=== PATIENT | female | born 1990 | race Caucasian/White ===

== ENCOUNTER 2016-06-24 18:19 | Inpatient (IN) ==
[2016-06-24 19:06] LABS: Bilirubin,Urine Negative (Negative); Blood,Urine Negative (Negative); Clarity,Urine Clear (Clear); Color,Urine Yellow (Yellow); Glucose,Urine (UA) Normal (Normal); Ketones,Urine Negative (Negative); Leukocyte Esterase,Urine Small (Negative); Nitrite,Urine Negative (Negative); Protein,Urine Negative (Neg-Trace); Specific Gravity,Urine 1.014 (1.010-1.025); Urobilinogen,Urine Normal (Normal)
--- NOTE | 2016-06-24 19:09 | Emergency Department Note ---
Disposition Clinical Impression: Pancreatitis Qualifiers: Chronicity: acute Pancreatitis type: unspecified pancreatitis type Acute pancreatitis complication: unspecified Qualified Code(s): K85.90 - Acute pancreatitis without necrosis or infection, unspecified Disposition: Admitted As Inpatient Condition: Fair Time of Disposition: 20:52 Abdominal Pain HPI - General Chief Complaint: ED Abdominal Pain Stated Complaint: ABD Pain Time Seen by Provider: 06/24/16 18:26 Source: patient, family Nursing Notes Reviewed: Yes Vital Signs Reviewed: Yes - History of Present Illness HPI Narrative: Ms. Torrez is a 26 year old female that presents with ongoing LUQ pain going on 3.5 hours with radiation into the epigastric region. Noting increase in frequency Patient reports a 3-4 month history of LUQ pain for which she has seen GI in clinic. Omeprazole previously increased to BID for GERD, hydrocortisone creme for history of hemorrhoids, and Bentyl for abdominal pain. Denies fever, nausea, vomiting. Pt Subjective Complaint: abdominal pain Onset (ago): hour(s) Consistency: constant Location: LUQ Pain Severity: severe Pain Scale: 8 Quality: sharp - Related Data Allergies Allergy/AdvReac Type Severity Reaction Status Date / Time No Known Allergies Allergy Verified 06/24/16 18:21 All systems ED: reviewed and negative except as stated. Constitutional: Denies: fever, chills Eyes: Denies: vision change ENT ED: Denies: hearing loss Cardiovascular: Denies: chest pain Respiratory: Denies: dyspnea Gastrointestinal: Reports: abdominal pain, diarrhea, melena, hematochezia. 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 Absent : tenderness - Respiratory Respiratory exam: Present: normal lung sounds bilaterally. Absent: respiratory distress, wheezes - Cardiovascular Cardiovascular exam: Present: regular rate, normal rhythm, +S1, +S2 - Abdominal Exam Abdominal exam: Present: soft, tenderness. Absent: distention, guarding, rebound, rigidity Abdominal tenderness: Present: LUQ, epigastrium - Extremities Exam Extremities exam: Present: normal inspection, full ROM. Absent: pedal edema - Back Exam Back exam: Absent: CVA tenderness (R), CVA tenderness (L) - Neurological Exam Neurological exam: Present: alert, oriented X3 - Psychiatric Psychiatric exam: Present: normal affect, normal mood - Skin Skin exam: Present: warm, dry, intact, normal color. Absent: rash, erythema Course Vital Signs Temperature 97.6 F 06/24/16 18:21 Pulse Rate 99 06/24/16 18:21 Respiratory Rate 16 06/24/16 18:21 Blood Pressure 194/107 06/24/16 18:21 O2 Sat by Pulse Oximetry 100 06/24/16 18:21 Temperature 98.2 F 06/24/16 23:45 Pulse Rate 73 06/24/16 23:45 Respiratory Rate 14 06/24/16 23:45 Blood Pressure 126/64 06/24/16 23:45 O2 Sat by Pulse Oximetry 97 06/24/16 23:45 Oxygen Delivery Oxygen Delivery Room Air Abdominal Pain - MDM Narrative Medical decision making narrative: Patient found to have elevated lipase at 1112. Denies history of alcohol use or hyperlipidemia. Will order lipid panel. Start fluids and order pain medication. Spoke to hospitalist who agreed to accept patient. Discussed findings and plan with patient who is agreeable to admission. - Medical Records Medical records reviewed: Yes I reviewed the patient's medical records. - Lab Data Lab results reviewed: Yes I reviewed the patient's lab results. Result diagrams: 06/24/16 19:04 06/24/16 19:04 Lab Results 06/24/16 06/24/16 06/24/16 Range/Units 18:38 18:50 19:04 WBC 9.7 (4.3-11.1) K/mcL RBC 4.77 (3.82-4.97) M/mcL Hgb 12.3 (11.5-15.4) g/dL Hct 40.4 (35.3-44.9) % MCV 84.7 (83.0-100.0) fL MCH 25.8 L (28.0-33.3) pg MCHC 30.4 L (31.6-35.5) g/dL RDW 12.9 (11.5-14.5) % Plt Count 441 H (140-400) K/mcL MPV 10.1 (9.4-12.4) fL Immature Gran % 0.3 (0-4) % Seg Neutrophils % 75.7 % Lymphocytes % 17.8 % Monocytes % 5.0 % Eosinophils % 0.9 % Basophils % 0.3 % Neutrophils # 7.4 (1.6-8.9) K/mcL Lymphocytes # 1.7 (0.6-4.6) K/mcL Monocytes # 0.5 (0.0-1.3) K/mcL Eosinophils # 0.1 (0.0-0.6) K/mcL Basophils # 0.0 (0.0-0.2) K/mcL Sodium (136-145) mEq/L Potassium (3.5-4.5) mEq/L Chloride (98-109) mEq/L Carbon Dioxide (19-29) mEq/L BUN (7-20) mg/dL Creatinine (0.57-1.11) mg/dL Est GFR ( Amer) (> 60) Est GFR (Non-Af Amer) (> 60) BUN/Creatinine Ratio (6-26) Glucose (70-99) mg/dL Calculated Osmolality (280-300) Calcium (8.6-10.8) mg/dL Total Bilirubin (0.2-1.2) mg/dL Direct Bilirubin (0.0-0.5) mg/dL Indirect Bilirubin (0.0-1.2) mg/dL AST (5-34) Units/L ALT (0-55) Units/L Alkaline Phosphatase (38-126) Units/L Serum Total Protein (6.0-8.3) g/dL Albumin (3.5-5.0) g/dL Globulin (2.4-3.5) g/dL Albumin/Globulin Ratio (1.1-2.2) Triglycerides (< 150) mg/dL Cholesterol (< 200) mg/dL LDL Cholesterol, Calc (0-99) mg/dL VLDL Cholesterol, Calc (< 31) mg/dL HDL Cholesterol (40-59) mg/dL Cholesterol/HDL Ratio (0-4.9) Amylase (25-125) Units/L Lipase (8-78) Units/L Urine Color Yellow (Yellow) Urine Clarity Clear (Clear) Urine pH 7.0 (5.0-8.0) pH Units Ur Specific [place] 1.014 (1.010-1.025) Urine Protein Negative (Neg-Trace) mg/dL Urine Glucose (UA) Normal (Normal) mg/dL Urine Ketones Negative (Negative) mg/dL Urine Blood Negative (Negative) Urine Nitrite Negative (Negative) Urine Bilirubin Negative (Negative) Urine Urobilinogen Normal (Normal) mg/dL Ur Leukocyte Esterase Small H (Negative) Urine Microscopic WBC 3-5 H (0-3) per hpf Ur Squamous Epith Cells Few (None-Few) per lpf Urine Bacteria Few (None-Few) per hpf Ur Culture Indicated? YES A (NO) Urine Test Negative (Negative) 06/24/16 Range/Units 19:04 WBC (4.3-11.1) K/mcL RBC (3.82-4.97) M/mcL Hgb (11.5-15.4) g/dL Hct (35.3-44.9) % MCV (83.0-100.0) fL MCH (28.0-33.3) pg MCHC (31.6-35.5) g/dL RDW (11.5-14.5) % Plt Count (140-400) K/mcL MPV (9.4-12.4) fL Immature Gran % (0-4) % Seg Neutrophils % % Lymphocytes % % Monocytes % % Eosinophils % % Basophils % % Neutrophils # (1.6-8.9) K/mcL Lymphocytes # (0.6-4.6) K/mcL Monocytes # (0.0-1.3) K/mcL Eosinophils # (0.0-0.6) K/mcL Basophils # (0.0-0.2) K/mcL Sodium 138 (136-145) mEq/L Potassium 4.0 (3.5-4.5) mEq/L Chloride 105 (98-109) mEq/L Carbon Dioxide 25 (19-29) mEq/L BUN 9 (7-20) mg/dL Creatinine 0.85 (0.57-1.11) mg/dL Est GFR ( Amer) > 60 (> 60) Est GFR (Non-Af Amer) > 60 (> 60) BUN/Creatinine Ratio 11 (6-26) Glucose 138 H (70-99) mg/dL Calculated Osmolality 287 (280-300) Calcium 9.3 (8.6-10.8) mg/dL Total Bilirubin 0.9 (0.2-1.2) mg/dL Direct Bilirubin 0.5 (0.0-0.5) mg/dL Indirect Bilirubin 0.4 (0.0-1.2) mg/dL AST 82 H (5-34) Units/L ALT 62 H (0-55) Units/L Alkaline Phosphatase 115 (38-126) Units/L Serum Total Protein 7.5 (6.0-8.3) g/dL Albumin 3.4 L (3.5-5.0) g/dL Globulin 4.1 H (2.4-3.5) g/dL Albumin/Globulin Ratio 0.8 L (1.1-2.2) Triglycerides 112 (< 150) mg/dL Cholesterol 168 (< 200) mg/dL LDL Cholesterol, Calc 97 (0-99) mg/dL VLDL Cholesterol, Calc 22 (< 31) mg/dL HDL Cholesterol 49 (40-59) mg/dL Cholesterol/HDL Ratio 3.4 (0-4.9) Amylase 367 H (25-125) Units/L Lipase 1112 H (8-78) Units/L Urine Color (Yellow) Urine Clarity (Clear) Urine pH (5.0-8.0) pH Units Ur Specific [place] (1.010-1.025) Urine Protein (Neg-Trace) mg/dL Urine Glucose (UA) (Normal) mg/dL Urine Ketones (Negative) mg/dL Urine Blood (Negative) Urine Nitrite (Negative) Urine Bilirubin (Negative) Urine Urobilinogen (Normal) mg/dL Ur Leukocyte Esterase (Negative) Urine Microscopic WBC (0-3) per hpf Ur Squamous Epith Cells (None-Few) per lpf Urine Bacteria (None-Few) per hpf Ur Culture Indicated? (NO) Urine Test (Negative) - Radiology Data Radiology results reviewed: Yes I reviewed the patient's radiology results. Attestation Statement - Attestation Attestation: I examined this patient and my medical decision-making was reviewed with the INVENTORY CONTROL MANAGER/PA/Advanced Practice Nurse/Resident Physician. I agree with the documented findings, disposition and treatment plan as described except to the extent set forth below. Patient presents with epigastric pain for several days she has decreased appetite several episodes of vomiting. On exam she is mildly tender in the epigastric area labs reviewed lipase over 1000 woman to the hospital service analgesic and antiemetic control IV fluids.
[2016-06-24 19:11] LABS: Bacteria,Urine Few per hpf (None-Few); Squamous Epithelial Cell,Urine Few per lpf (None-Few)
[2016-06-24 19:14] LABS: Basophils % 0.3 %; Eosinophils # 0.1 K/mcL (0.0-0.6); Eosinophils % 0.9 %; Hematocrit 40.4 % (35.3-44.9); Hemoglobin 12.3 g/dL (11.5-15.4); Immature Granulocytes % 0.3 % (0-4); Lymphocytes # 1.7 K/mcL (0.6-4.6); Lymphocytes % 17.8 %; Mean Corpuscular HGB Conc 30.4 g/dL (31.6-35.5); Mean Corpuscular Hemoglobin 25.8 pg (28.0-33.3); Mean Corpuscular Volume 84.7 fL (83.0-100.0); Mean Platelet Volume 10.1 fL (9.4-12.4); Monocytes # 0.5 K/mcL (0.0-1.3); Neutrophils # 7.4 K/mcL (1.6-8.9); Platelet Count 441 K/mcL (140-400); Red Blood Count 4.77 M/mcL (3.82-4.97); Red Cell Distribution Width 12.9 % (11.5-14.5); Segmented Neutrophils % 75.7 %
[2016-06-24 19:31] LABS: Alanine Aminotransferase 62 Units/L (0-55); Albumin 3.4 g/dL (3.5-5.0); Albumin/Globulin Ratio 0.8 (1.1-2.2); Alkaline Phosphatase 115 Units/L (38-126); Amylase 367 Units/L (25-125); Aspartate Amino Transferase 82 Units/L (5-34); BUN/Creatinine Ratio 11 (6-26); Bilirubin,Direct 0.5 mg/dL (0.0-0.5); Bilirubin,Indirect 0.4 mg/dL (0.0-1.2); Bilirubin,Total 0.9 mg/dL (0.2-1.2); Blood Urea Nitrogen 9 mg/dL (7-20); Calcium 9.3 mg/dL (8.6-10.8); Carbon Dioxide 25 mEq/L (19-29); Chloride 105 mEq/L (98-109); Globulin 4.1 g/dL (2.4-3.5); Glucose 138 mg/dL (70-99); Lipase 1112 Units/L (8-78); Osmolality,Calculated 287 (280-300); Sodium 138 mEq/L (136-145); Total Protein 7.5 g/dL (6.0-8.3); eGFR For African Americans > 60 (> 60); eGFR For Non-African Americans > 60 (> 60)
[2016-06-24] MEDS ORDERED: Ketorolac 30 MG/ML VIAL IVP ONE (19:55)
[2016-06-24 20:03] LABS: Chol/HDL Ratio 3.4 (0-4.9); Cholesterol 168 mg/dL (< 200); HDL Cholesterol 49 mg/dL (40-59); LDL Cholesterol,Calculated 97 mg/dL (0-99); Triglycerides 112 mg/dL (< 150)
[2016-06-24] MEDS ORDERED: 0.9 % Sodium Chloride 1,000 ML IVC ONE (20:20)
[2016-06-24] MEDS ORDERED: Naloxone 0.4 MG/ML INJ IVP PRN (22:04)
[2016-06-24] MEDS ORDERED: *HR* HYDROmorphone (PF) 1 MG/ML SYRINGE IVP PRN (22:04)
[2016-06-24] MEDS ORDERED: *HR* Promethazine 25 MG/ML VIAL IVP PRN (22:04)
[2016-06-24] MEDS ORDERED: Ketorolac 30 MG/ML VIAL IVP PRN ×3 (22:04→22:25)
[2016-06-24] MEDS ORDERED: *HR* Morphine 2 MG/ML SYRINGE IVP PRN (22:21)
[2016-06-24] MEDS: 0.9 % Sodium Chloride 1,000 ML IVC SCH (22:32)
--- NOTE | 2016-06-24 23:24 | Internal Med History&Physical ---
<Gia Shannon - Last Filed: 06/25/16 04:21> Date of Encounter: 06/25/16 Time of Encounter: 23:13 Assessment and Plan (1) Pancreatitis Status: Acute unknown etiology lipase 1112, amylase 367 glucose 138 triglycerides 112 will check ca ERCP IVF pain control NPO supportive care Qualifiers: Chronicity: acute Pancreatitis type: unspecified pancreatitis type Acute pancreatitis complication: unspecified Qualified Code(s): K85.90 - Acute pancreatitis without necrosis or infection, unspecified (2) Morbid obesity due to excess calories Status: Acute currently making lifestyle changes can follow up outpt (3) Epigastric abdominal pain Status: Acute (4) LUQ pain Status: Acute (5) DVT (deep venous thrombosis) Status: Chronic present for past 6 years wears compression stockings at home continue home therapy Qualifiers: DVT location: lower extremity Affected thrombotic vein of extremity: unspecified vein of extremity Laterality: bilateral Chronicity: chronic Qualified Code(s): I82.503 - Chronic embolism and thrombosis of unspecified deep veins of lower extremity, bilateral (6) GERD (gastroesophageal reflux disease) Status: Acute PPI Qualifiers: Esophagitis presence: esophagitis presence not specified Qualified Code(s) : K21.9 - Gastro-esophageal reflux disease without esophagitis Internal Medicine - H&P: HPI Chief complaint: abd pain Admitted From: Home Plans for Post Hospital Care: Home History of present illness: Ms. Torrez is a 26 year old female c/o LUQ abdominal pain. PMH b/l DVT, GERD with c/o LUQ pain that radiates to the epigastric region, started ealier today when she was getting ready to go for a walk and is an 8/10 sharp stabbing pain. Pt states she has had pain in this region before but never this severe. Pt states pain does not seem to be associated with any food or anything else in particular. SHe states she recently has been eating vary healthy and staying away from fried, and fatty foods and has lost about 100lbs in the past year. She states she has also had some on and off diarrhea but thinks it is due to the fiber supplants she takes.. she denies fever, chills, nausea, vomiting, SOB , CP, numbness/tingling Past Med Surg Social Fam HX - Past Medical History Medical history: DVT (b/l LE), GERD, other Psychiatric history: anxiety - Social History Smoking Status: Never smoker Smokeless Tobacco Status: No Alcohol use: none Drug use: none Current living situation: Home Activity Level: Independent ambulation Recent Out of Country Travel Within the Last 8 Weeks: No Exposure or Possible Exposure to Illness During Travel: No - Family History Mother Adopted: No Living Status: Still Living Hx Family Cardiac Disorders: Yes (grandpa- heart attack) Hx Family Respiratory Disorders: No Hx Family Cancer: Yes (mom cancer in female organs) Hx Family GI Disorders: Yes (chrons) Hx Family Genitourinary Disorders: Yes Hx Family Endocrine Disorder: No Hx Family Musculoskeletal Disorders: No Hx Family Neuromuscular Disorders: No Hx Family Neurologic Disorders: No Hx Family HEENT Disorders: No Hx Family Autoimmune Disorders: No Hx Family Reproductive Disorders: Yes (Mother cancer, hysterectomy) Hx Family Psychosocial Disorders: No Hx Family Medical Disorders: No Father Adopted: No Living Status: Still Living Hx Family Cardiac Disorders: Yes (grandpa- heart attack) Hx Family Respiratory Disorders: No Hx Family Cancer: Yes (mom cancer in female organs) Hx Family GI Disorders: Yes (chrons) Hx Family Genitourinary Disorders: Yes Hx Family Endocrine Disorder: No Hx Family Musculoskeletal Disorders: No Hx Family Neuromuscular Disorders: No Hx Family Neurologic Disorders: No Hx Family HEENT Disorders: No Hx Family Autoimmune Disorders: No Hx Family Reproductive Disorders: Yes (Mother cancer, hysterectomy) Hx Family Psychosocial Disorders: No Hx Family Medical Disorders: No Internal Medicine - H&P: Meds Allergies No Known Allergies Allergy (Verified 06/24/16 18:21) All Systems PM: A 10-system review of systems was performed and is negative for pertinent findings except as documented above in the HPI. - Constitutional Constitutional: no chills, no fever(s), no night sweats - EENT Eyes: no change in vision, no discharge, no pain, no photophobia Ears: no ear discharge, no ear pain, no tinnitus Nose, mouth and throat: no dysphagia, no nasal discharge, no neck pain, no sore throat - Cardiovascular Cardiovascular ROS IM: no chest pain, no diaphoresis, no dyspnea, no lightheadedness, no palpitations, no syncope - Respiratory Respiratory: no cough, no dyspnea, no wheezing, no excessive phlegm production - Gastrointestinal Gastrointestinal: abdominal pain, diarrhea, heartburn, no cramping, no hematemesis, no hematochezia, no melena, no nausea, no vomiting - Genitourinary Genitourinary: no change in urinary stream, no dysuria, no flank pain, no hematuria - Musculoskeletal Musculoskeletal ROS IM: no numbness, no tingling - Integumentary Integumentary IM: no rash, no unusual bruising - Neurological Neurological ROS: no confusion, no convulsions, no focal weakness, no numbness, no tingling, no tremor(s) - Hematologic/Lymphatic Hematologic/Lymphatic: no easy bruising - Constitutional Vitals: Temp Pulse Resp BP Pulse Ox 97.6 F 99 14 132/73 100 06/24/16 18:21 06/24/16 18:21 06/24/16 21:14 06/24/16 21:14 06/24/16 18:21 General appearance: Present: A&O X 3, morbidly obese, no acute distress, answers questions appropriately - Head Head exam: Present: atraumatic, normocephalic - Eye Eye exam: Present: EOMI, PERRL, conjuntiva pink, sclera anicteric Pupils: Present: PERRL - ENT ENT exam: Present: mucous membranes moist - Neck Neck exam general surgery: Present: supple, trachea midline. Absent: lymphadenopathy - Respiratory Respiratory exam: Present: CTAB. Absent: accessory muscle use, rales, rhonchi, wheezes - Cardiovascular Cardiovascular exam: Present: RRR, +S1, +S2. Absent: diastolic murmur, gallop, rubs, systolic murmur - GI/Abdominal GI/Abdominal exam: Present: normal bowel sounds, soft, tenderness (epigastric, LUQ RUQ), no peritoneal signs - Expanded GI/Abdominal Exam GI/Abdominal exam expanded: Absent: Harris's sign, tenderness at McBurney's Point - Extremities Exam Extremities exam: Present: warm, radial pulses palpable and symetrical. Absent : calf tenderness, cyanotic, pedal edema - Back Exam Back exam: Absent: CVA tenderness (L), CVA tenderness (R) - Neurological Exam Neurological exam: Present: CN II-XII intact, oriented X3, no focal deficits. Absent: pronater drift, facial droop, speech deficit - Skin Skin exam: Present: dry, intact Internal Med - H&P Results - Labs CBC & Chem 7: 06/24/16 19:04 06/24/16 19:04 <IsisOsmin kennedyjeannapolo Anguiano - Last Filed: 06/28/16 13:47> Date of Encounter: 06/24/16 Internal Medicine - H&P: HPI History of present illness: Ms. Torrez is a 26 year old female All Systems PM: A 10-system review of systems was performed and is negative for pertinent findings except as documented above in the HPI. - Constitutional Vitals: Temp Pulse Resp BP Pulse Ox 98.6 F 69 16 136/74 99 06/25/16 14:55 06/25/16 14:55 06/25/16 14:55 06/25/16 14:55 06/25/16 14:55 Internal Med - H&P Results - Labs CBC & Chem 7: 06/25/16 04:05 06/25/16 04:05 - Impressions ITS Impressions Abdomen MRI 06/25/16 13:36 IMPRESSION: 1. Cholelithiasis with no evidence of acute inflammation. 2. Normal MRCP. D/ / Wilman Betancur MD / Wilman Betancur MD Interpreting Provider: Wilman Betancur MD - Attending Attestation I performed a history and physical examination of the patient and discussed the management with the reisident/Custom Dressmaker. I reviewed resident/market research intern's note and agree with the documented findings and plan of care. 26 year old female c/o LUQ abdominal pain that radiates to the epigastric region. No h/o ETOH intake. No personal h/o Gall stone disease. O/E: tenderness in the epigastric region and LUQ area. Cardiac: regular rate and rhythm. Labs: lipase elevated at 1112. A/P: Acute Pancreatitis: check lipid panel; MRCP. Treat wit IV fluids; pain relief.
[2016-06-25] MEDS: 0.9 % Sodium Chloride 1,000 ML IVC SCH ×3 (04:44→17:33)
[2016-06-25 05:12] LABS: Hemoglobin 10.9 g/dL (11.5-15.4); Mean Corpuscular HGB Conc 30.3 g/dL (31.6-35.5); Mean Corpuscular Hemoglobin 25.9 pg (28.0-33.3); Mean Corpuscular Volume 85.5 fL (83.0-100.0); Mean Platelet Volume 10.5 fL (9.4-12.4); Platelet Count 373 K/mcL (140-400); Red Blood Count 4.21 M/mcL (3.82-4.97)
[2016-06-25 05:26] LABS: BUN/Creatinine Ratio 12 (6-26); Blood Urea Nitrogen 9 mg/dL (7-20); Calcium 8.6 mg/dL (8.6-10.8); Carbon Dioxide 23 mEq/L (19-29); Chloride 110 mEq/L (98-109); Glucose 92 mg/dL (70-99); Osmolality,Calculated 292 (280-300); Potassium 3.8 mEq/L (3.5-4.5); Sodium 142 mEq/L (136-145); eGFR For African Americans > 60 (> 60); eGFR For Non-African Americans > 60 (> 60)
[2016-06-25] MEDS ORDERED: Pantoprazole 40 MG VIAL IVP SCH ×3 (06:30→19:30)
[2016-06-25] MEDS ORDERED: *HR* Enoxaparin 40 MG/0.4 ML SYRINGE SQ SCH (07:00)
--- NOTE | 2016-06-25 13:51 | Internal Med Progress Note ---
Date of Encounter: 06/25/16 Time of Encounter: 13:48 - Assessment and plan (1) Acute pancreatitis Current Visit: Yes Status: Acute Assessment and plan: Diagnosed based on epigastric abdominal pain and lipase elevated at 1100. We will obtain an MRCP stat to evaluate for possible gallstone pancreatitis. We will keep the patient nothing by mouth. We will provide treatment with IV fluids. IV morphine for pain. IV Zofran for nausea. Check lipase in the morning. The patient has normal lipids, has not no medication that could account for pancreatitis. Qualifiers: Pancreatitis type: idiopathic Acute pancreatitis complication: no infection or necrosis Qualified Code(s): K85.00 - Idiopathic acute pancreatitis without necrosis or infection (2) Morbid obesity due to excess calories Current Visit: Yes Status: Acute Assessment and plan: Outpatient weight loss regimen. (3) Epigastric abdominal pain Current Visit: Yes Status: Acute Assessment and plan: IV opiates for pain. The patient is a very high morbidity and mortality risk and complication risk due to treatment provided IV controlled substances. (4) LUQ pain Current Visit: Yes Status: Acute (5) GERD (gastroesophageal reflux disease) Current Visit: Yes Status: Acute Assessment and plan: IV Protonix. Qualifiers: Esophagitis presence: esophagitis presence not specified Qualified Code(s) : K21.9 - Gastro-esophageal reflux disease without esophagitis (6) DVT prophylaxis Current Visit: Yes Status: Acute Assessment and plan: Subcutaneous Lovenox - Subjective Interval history: She reports moderate dull upper abdominal pain mostly around the left upper quadrant. No associated nausea or fever. She reports no new medications other than fiber pill. Denies any aggravating or alleviating factors. She presented to the hospital and was found to have an elevated lipase of 1100. - Constitutional Vitals: Temp Pulse Resp BP Pulse Ox 97.7 F 74 16 151/86 98 06/25/16 10:45 06/25/16 10:45 06/25/16 10:45 06/25/16 10:45 06/25/16 10:45 General appearance: Present: A&O X 3, morbidly obese, no acute distress, answers questions appropriately - Eye Eye exam: Present: PERRL, conjuntiva pink, sclera anicteric Pupils: Present: PERRL - Respiratory Respiratory exam: Present: CTAB. Absent: accessory muscle use, rales, rhonchi, wheezes - Cardiovascular Cardiovascular exam: Present: RRR, +S1, +S2. Absent: diastolic murmur, gallop, rubs, systolic murmur - GI/Abdominal GI/Abdominal exam: Present: normal bowel sounds, soft, no peritoneal signs. Absent: distended, tenderness - Neurological Exam Neurological exam: Present: CN II-XII intact, oriented X3, no focal deficits. Absent: pronater drift, facial droop, speech deficit - Skin Skin exam: Present: dry, intact Internal Medicine: Result - Labs CBC & Chem 7: 06/25/16 04:05 06/25/16 04:05 Labs: Short CBC 06/25/16 Range/Units 04:05 WBC 8.6 (4.3-11.1) K/mcL Hgb 10.9 L (11.5-15.4) g/dL Hct 36.0 (35.3-44.9) % Plt Count 373 (140-400) K/mcL BMP 06/25/16 04:05 Sodium 142 Potassium 3.8 Chloride 110 H Carbon Dioxide 23 BUN 9 Creatinine 0.75 Glucose 92 Calcium 8.6 - VTE Documentation of Mechanical Device: Graduated compression elastic hosiery Consult Discharge Plan - Plan Referrals: Leydi Augustin MD [Primary Care Provider] -
[2016-06-26 10:57] VITALS: BP 136/74
--- NOTE | 2016-06-27 21:03 | Event Note ---
Date of Encounter: 06/25/16 Time of Encounter: 18:30 I was called by the patient's nurse who told me that the patient decided to leave the hospital AMA. She was presented with the risks of leaving the hospital which included but were not limited to worsening pain, infection, sepsis and . She was advised to follow-up with her primary care physician closely and if the pain gets worse to present to the nearest emergency room. In spite of our advice against it the patient signed the paperwork and left the hospital AMA.
== END 2016-06-25 19:35 | disposition left against medical advice (07) | DRG 282 ==
LOC: 3ANU 18:19 → EMEROO 18:19 → 3ANU 21:15
PROVIDERS: ADMIT Internal Medicine; ATTEND Internal Medicine